=== PATIENT | female | born 1995 | race Hispanic/Latino ===

== ENCOUNTER 2018-12-25 19:42 | Observation (INO) | payer OTHER, SELFPAY ==
[2018-12-25 21:27] VITALS: BMI 29.7
--- NOTE | 2018-12-25 22:18 | ULT ---
ULTRASOUND ABDOMEN LIMITED 12/25/18 HISTORY: Right upper quadrant pain. COMPARISON: None. FINDINGS: Real time eaton scale and color doppler evaluation of the abdomen was performed. Portal vein is patent . Antegrade flow. There is pericholecystic edema. Mild dilatation of the gallbladder. There is cholelithiasis. Gallbladder wall measures over 6 mm. Common bile duct measures 6 mm. Right kidney measures 11.9 x 4.2 x 5.5 cm without mass, hydronephrosis or abnormal calcifications. IMPRESSION: Findings suggesting acute cholecystitis in the correct clinical setting. Surgical consultation advise d. POS: ИРИНА
[2018-12-25] MEDS ORDERED: Ondansetron PF 4 MG/2 ML Vial IVP PRN (23:30)
[2018-12-25] MEDS ORDERED: Acetaminophen 500 MG TAB PO PRN (23:30)
[2018-12-25] MEDS: Lactated Ringer's 1,000 ML IV SCH (23:56)
[2018-12-25] MEDS: Ampicillin/Sulbactam 3 GM in Sodium Chloride 0.9% 100 ML IVPB SCH (23:59)
--- NOTE | 2018-12-26 00:47 | HP ---
CHIEF COMPLAINT: Abdominal pain. HISTORY OF PRESENT ILLNESS: The patient is a 23-year-old G1, P0 female with an intrauterine at 35 weeks, who was transferred from [facility] secondary to right upper quadrant pain for ultrasound evaluation. Upon arrival , the patient reports that she has had onset of right upper quadrant pain today several hours prior to arrival that has spontaneously improved. The patient reports that she had difficulty breathing that the pain was sharp and seemed a wrap around her right upper abdomen and rib cage. The patient reports denies any heavy lifting or movement. She denies any history of gallbladder disease or gallstones. She denies fevers. Denies nausea and vomiting. She denies headache or chest pain. She reports shortness of breath that has since resolved. Denies diarrhea or constipation. Denies any new rashes. Denies vaginal bleeding, leakage of fluid , uterine contractions, and reports good movement. The patient also denies back pain. The patient reports the pain is sharp. Denies any worsening with movement activity. Does report worsening with breathing. PAST MEDICAL HISTORY: Negative. PAST SURGICAL HISTORY: Negative. SOCIAL HISTORY: Denies drug, alcohol, or tobacco use. ALLERGIES: NO KNOWN DRUG ALLERGIES. MEDICATIONS: vitamins. OB LABS: Unavailable. OB PROVIDER: Dr. Okeefe in [place], [place]. REVIEW OF SYSTEMS: Per HPI. PHYSICAL EXAMINATION: VITAL SIGNS: Blood pressure 138/85, heart rate of 65, respiratory rate of 18, temperature 98.2. GENERAL: She appears to be in no acute distress. She is alert, oriented, cooperative, and pleasant to interact with. HEAD: Normocephalic and atraumatic. LUNGS: Clear to auscultation bilaterally. HEART: Regular rate and rhythm. ABDOMEN: Gravid. She does have some tenderness in the right upper quadrant with point tenderness in her intercostal muscles on the right side that is exquisitely tender. The patient reports this seems to be the main source of her pain. The patient does have equivocal Soria's sign. Does have some tenderness, but reports that her pain there has gotten much better. : Deferred. The patient has no CVA tenderness. heart tracing performed for abdominal pain in , baseline is noted to be in the 140s with positive 15 x 15 accelerations, no decelerations. She has some irregular contractions on the monitor, but not felt by the patient. LABORATORY WORK: From outside facility shows a white count of 11 with neutrophil percentage of 77, hemoglobin of 12, hematocrit 33.8, platelets of 210,000. Chemistry shows sodium of 137, potassium of 4.0, creatinine 0.71, her glucose of 122, T bilirubin of 0.2, AST of 33, ALT of 17, and alkaline phosphatase of 141. An ultrasound was performed here, significant findings show pericholecystic edema and mild dilatation of the gallbladder and cholelithiasis. The gallbladder wall measures over 6 mm and the common bile duct measures 6 mm with impression of findings suggestive of acute cholecystitis. Surgical consultation is advised. ASSESSMENT AND PLAN: The patient is a 23-year-old female with an intrauterine at 35 weeks, who initially presented with right upper quadrant pain and was transferred to [facility] for an ultrasound from an outlying facility. On arrival, the patient's primary pain seems to be musculoskeletal and reproduced by palpation, surprising to myself for the ultrasound findings suggesting cholecystitis as the patient is afebrile, has an essentially normal white count and marginal if any left shift and no acute phase changes of her platelet count. There are no clinical symptoms or signs to support an infectious etiology. Given the potential severity of a cholecystitis, the patient is going to be placed on Unasyn overnight and placed n.p.o. for General Surgery consult in the morning to see what their recommendations are at this time. Fetus is a category one tracing and is overall a reactive NST. I have discussed these findings with the patient and the patient has agreed to remain until the morning. Job ID: [id number] [facility]
[2018-12-26 01:56] LABS: Hemoglobin 11.9 g/dL (12.0-16.0); Mean Corpuscular HGB CONC 35.4 g/dL (32.0-36.0); Mean Corpuscular Volume 90.5 fL (78.0-98.0); Mean Platelet Volume 8.4 fL (7.4-10.4); Platelet Count 208 thou/uL (130-400); RBC Distribution Width 11.3 % (11.5-14.5); White Blood Cell (WBC) Count 11.6 thou/uL (4.8-10.8)
[2018-12-26 02:31] LABS: HBSAg Index 0.25 S/CO (0-0.99); Hep B Surf Ag Non-Reactive S/CO (NonReactive)
[2018-12-26] MEDS: Ampicillin/Sulbactam 3 GM in Sodium Chloride 0.9% 100 ML IVPB SCH (05:14)
[2018-12-26 05:55] LABS: Syphilis Antibody Nonreactive (Nonreactive); Syphilis Antibody Index 0.03 S/CO (<1.00 Non-Reactive)
[2018-12-26 06:07] LABS: #Eosinphils 0.1 thou/uL (0.0-0.7); #Monocytes 0.5 thou/uL (0.11-0.59); #Neutrophils 7.7 thou/uL (1.40-6.50); %Basophils 0.4 % (0.0-1.0); %Eosinophils 0.9 % (0.0-10.0); %Lymphocytes 26.3 % (21.0-51.0); %Monocytes 4.4 % (0.0-10.0); %Neutrophils 67.9 % (42.0-75.0); Mean Corpuscular HGB CONC 35.1 g/dL (32.0-36.0); Mean Corpuscular Hemoglobin 31.8 pg (27.0-31.0); Mean Corpuscular Volume 90.7 fL (78.0-98.0); Mean Platelet Volume 8.7 fL (7.4-10.4); Platelet Count 186 thou/uL (130-400); RBC Distribution Width 11.4 % (11.5-14.5); Red Blood Cell (RBC) Count 3.46 mill/uL (4.20-5.40); White Blood Cell (WBC) Count 11.3 thou/uL (4.8-10.8)
[2018-12-26 08:34] VITALS: BP 132/81; TEMP 97.8
[2018-12-26] MEDS: Lactated Ringer's 1,000 ML IV SCH (08:38)
[2018-12-26 09:03] LABS: ALT (SGPT) 15 U/L (8-55); AST (SGOT) 27 U/L (5-34); Albumin 2.9 g/dL (3.5-5.0); Alkaline Phosphatase 126 U/L (40-150); Bilirubin, Direct 0.1 mg/dL (0.1-0.3); Bilirubin, Total 0.2 mg/dL (0.2-1.2); Lipase 25 U/L (8-78); Protein, Total 5.6 g/dL (6.0-8.3)
--- NOTE | 2018-12-26 13:37 | CON ---
DATE OF CONSULTATION: 12/26/2018 HISTORY OF PRESENT ILLNESS: Ms. Lizama is a 23-year-old woman, who is G1, P0, at 35 weeks' gestation. The patient presented to the hospital in [place] with insidious onset right upper quadrant abdominal pain since yesterday. Pain started a couple of hours after lunch consisting of cheeseburger and Persian fries. Pain was described as sharp without any radiation and associated with some nausea, but no emesis. The patient underwent an abdominal ultrasound, which revealed some gallstones and gallbladder wall thickening for which the patient was transferred to [facility]. At the time of my evaluation, the patient denies abdominal pain. She denies any nausea. She has had no fevers or chills since yesterday. She is currently n.p.o. PAST MEDICAL HISTORY: The patient denies any previous medical problems. PAST SURGICAL HISTORY: She denies any previous surgeries. SOCIAL HISTORY: She is . at bedside. She denies any cigarette smoking, ethanol, or illicit drug abuse. PREHOSPITAL MEDICATIONS: None except for vitamins. ALLERGIES: THE PATIENT DENIES ANY KNOWN DRUG ALLERGIES. REVIEW OF SYSTEMS: Ten-point review of systems is essentially unremarkable except as stated in past medical history and chief complaint. PHYSICAL EXAMINATION: GENERAL: This reveals a 23-year-old normally developed woman, who is otherwise coherent and interactive and appears stated age. The patient is alert and oriented x3. She appears to be in no acute distress at time of my evaluation. VITAL SIGNS: Today include blood pressure 132/81, pulse is 57, respiratory rate is 18, temperature 97.8 degrees Fahrenheit, maximum temperature since admission is 98.2 degrees Fahrenheit, and oxygen saturation is 98% on room air. HEENT: Reveals normocephalic and atraumatic. She has no scleral icterus present. HEART: Reveals regular rate and rhythm. No murmurs or gallops auscultated. LUNGS: Clear to auscultation bilaterally. Her breathing is regular and nonlabored. ABDOMEN: Soft and gravid with uterus palpated almost to the subcostal margin. She has no abdominal tenderness to palpation. EXTREMITIES: Reveal 2+ radial and pedal pulses bilaterally. No ankle edema is present. NEUROLOGIC: Reveals no focal deficits present. LABORATORY FINDINGS: Today include a CBC with 11,300 white blood cells, hemoglobin and hematocrit are 11.0 and 31.4 respectively. Platelet count is 186,000. LFTs; total bilirubin is 0.2, AST and ALT are 27 and 15 respectively. Alkaline phosphatase is also normal at 126. Lipase is normal at 25. I have personally reviewed the abdominal ultrasound, which was obtained yesterday, and this shows multiple small intraluminal gallstones aggregating at the gallbladder neck. There is gallbladder wall thickening with pericholecystic fluid. The common bile duct is dilated for this patient's age at 6.1 mm in diameter. IMPRESSION: Asymptomatic cholelithiasis. It is likely that this patient may have passed a common bile duct stone given a dilated common bile duct. There is no clinical evidence of acute cholecystitis at this time despite radiographic findings to suggest so. RECOMMENDATIONS: 1. We will obtain an MRCP to rule out common bile duct stone. If the MRCP is negative, I will consider advancing the patient's diet and advise her to avoid fatty meals until baby is safely delivered after which we can pursue a laparoscopic cholecystectomy 1 to 2 days after delivery. 2. In the interim, if the patient becomes symptomatic prior to her due date, the only alternative will be to pursue an open cholecystectomy. Above findings and recommendations were discussed with the patient and at bedside. They both indicated understanding information given. I have answered their questions. Thank you again, Dr. Queen, for allowing me the opportunity to participate in the care of this patient. Job ID: [id number]
--- NOTE | 2018-12-27 11:16 | PRG ---
DATE OF SERVICE: 12/26/2018 ADDENDUM: Ms. Lizama is a 23-year-old, G1, P0, with asymptomatic cholelithiasis and probable chronic cholecystitis. The patient was due to have MRCP today to evaluate dilated common bile duct of 6 mm in diameter. This required the patient being n.p.o. for 8 to 10 hours. The MRCP was, therefore, to be delayed until tomorrow morning as the patient had already eaten lunch. I did offer the patient two options; one option is to be discharged home with an advice to return to the emergency department with any onset of abdominal pain as I suspect that she may very well have passed a common bile duct stone at this time. I think it is less likely that she still has retained stone and remaining asymptomatic with normal LFTs and no fever. Alternatively, the patient could be n.p.o. after midnight tonight and have the MRCP in the morning and then be discharged if it is normal thereafter. The patient conferred with her and both have decided to go home with full knowledge that they to return to the emergency department with any onset of abdominal pain. I did answer their questions. Job ID: [id number]
== END 2018-12-26 14:05 | disposition home or self-care (01) ==
LOC: SDC 19:42 → SDC/OP 19:42 → 3SW 12-26 01:06
PROVIDERS: ADMIT Obstetrics & Gynecology; ATTEND Obstetrics & Gynecology
DX: O99.613 Diseases of the digestive system complicating pregnancy, third trimester (principal); K80.20 Calculus of gallbladder without cholecystitis without obstruction; Z3A.35 35 weeks gestation of pregnancy; Z79.899 Other long term (current) drug therapy
CPT/HCPCS: 36415; 76705; 80076; 83690; 85025; 85027; 86780; 86850; 86870; 86880; 86900; 86901; 86905; 87340; 96361; 96365; 99285; G0378; J0295; J7050